=== PATIENT | male | born 1995 | race Caucasian/White ===

== ENCOUNTER 2022-03-19 10:52 | Emergency (ER) | payer OTHER, SELFPAY ==
--- OUTSIDE RECORDS SUMMARY | 2022-03-19 10:54 | XMS REPORT | Continuity of Care Document ---
:1995 Author Organization [facility] t Address [address] [place] [address] Care Team Providers Name Role Phone merary Attending Clinician Unavailable DR ARLET MILES Attending Clinician Unavailable merary Admitting Clinician Unavailable DR ARLET MILES Admitting Clinician Unavailable Payers Payer Name Policy Type Policy Number Effective Date Expiration Date S ource [place] [id number] 2013 00:00:00 [place] ([place] Problems This patient has no known problems. Allergies, Adverse Reactions, Alerts This patient has no known allergies or adverse reactions. Medications This patient has no known medications. Procedures This patient has no known procedures. Encounters Start End Encounter Admission Attending Care Care Encounter Source Date/Time Date/Time Type Type Clinicians Facility Department ID 2020-03-27 2020-03-27 Outpatient merary [facility] [id number] [place] 02:39:00 02:39:00 [facility] 2017-02-09 2017-02-09 Emergency E ARLET MILES [facility] [id number] 06:40:00 08:33:00 [facility] Results Test Description Test Time Test Comments Results Result [facility] e Comments CT ABDOMEN AND 2017-02-09 CT abdomen and pelvis PELVIS WITH 08:13:53 with contrastLocation CONTRAST*WW* Code: [id number] HISTORY: right abdominal painCOMPARISON: 06/26/15Technique: Helical CT of the abdomen and pelvis was performed followingintravenous contrast. Thin section axial, sagittal and coronal images wereobtained. One or more of the following dose reduction techniques were used:Automated exposure control, adjustment of the mA and or KV according to patientsize, and/or utilization of iterative reconstruction technique. DLP: 2203.39mGy-cm.FINDINGS:Th e lung bases are clear. The liver, gallbladder, adrenal glands, kidneys, pancreas, and spleen areunremarkable.The unopacified loops of bowel demonstrate no focal thickening or dilatation.The appendix is visualized and is normal. There is no free peritoneal air orfluid. The abdominal aorta is normal in caliber and contour. There is noretroperitoneal mass or fluid collection. The urinary bladder is unremarkable.There is no pelvic mass or fluid collection. No evidence of diverticulitis.The bones, skin, and surrounding soft tissues are unremarkable.IMPRESSION: No acute abnormality or interval change. AMYLASE AND LIPASE *WW* 2017-02-09 07:39:00 Test Item Value Reference Range Interpretation Comme nts AMYLASE (test code = 10A) 57 U/L 28-100 LIPASE (test code = 60A) 196 IU/L 73-393 COMPREHENSIVE METABOLIC LLAMAS *WW*2017-02-09 07:39:00 Test Item Value Reference Range Interpretation Comments GLUCOSE (test code = 06D) 89 mg/dL 75-100 SODIUM (test code = 01A) 139 mmol/L 136-145 POTASSIUM (test code = 01B) 4.2 mmol/L 3.6-5.1 CHLORIDE (test code = 04A) 105 mmol/L 98-107 CO2 (test code = 02A) 28 mmol/L 22-32 ANION GAP (test code = ANG) 10.2 mmol/L BUN (test code = 05D) 10 mg/dL 7-18 CREATININE (test code = 03E) 1.1 mg/dL 0.7-1.3 BUN/CREA (test code = BCR) 9 12-20 L CALCIUM (test code = 09D) 9.0 mg/dL 8.3-9.5 BILI TOTAL (test code = 11A) 1.0 mg/dL 0.2-1.0 PROTEIN (test code = 07D) 7.0 g/dL 6.4-8.2 ALBUMIN (test code = 08D) 4.4 g/dL 3.5-4.8 GLOBULIN (test code = GLB) 2.6 g/dL 1.5-3.8 ALB/GLOB (test code = AGRR) 1.7 1.0-2.6 ALK PHOS (test code = 35A) 72 IU/L 42-121 AST (test code = 30A) 18 IU/L <=42 ALT (test code = 31A) 36 IU/L <=78 PRO TIME AND PTT 2017-02-09 07:32:00 Test Item Value Reference Range Interpretation Comments PT (test code = 13.4 s 9.8-13.6 TT) INR (test code = 1.2 INR) INRH (test code = SUGGESTED THERAPEUTIC INRH) RANGE FOR INR: 2.5 - 3.5 For Patients with Prosthetic Valves or Patients with recurrent Thromboembolic Events 2.0 - 3.0 For Most Other Applications PTT (test code = 30.6 s 20.2-38.0 PTT) PTTH (test code = To monitor the PTTH) effectiveness of heparin, we offer the Anti-Xa (Heparin Assay). It can be used for either unfractionated or LMW Heparin. Order Code is ANTI-XA URINALYSIS 2017-02-09 07:19:00 Test Item Value Reference Range Interpretation Comments COLOR (test code = COLU) YELLOW YELLOW CLARITY (test code = CLA) CLEAR CLEAR GLUCOSE UR (test code = UA GLUCOSE) NEGATIVE NEGATIVE BILI UR (test code = BILE) NEGATIVE NEGATIVE KETONES UR (test code = ESTEFANIA) NEGATIVE NEGATIVE SP GRAVITY (test code = SPGR) 1.020 1.005-1.030 PH UR (test code = PH) 7.0 4.5-8.0 PROTEIN UR (test code = PU) NEGATIVE NEGATIVE UROBIL UR (test code = UROQ) 1.0 EU/dL 0.2-1.0 NITRITE UR (test code = NITRITE) NEGATIVE NEGATIVE BLOOD UR (test code = UA BLOOD) NEGATIVE NEGATIVE LEUK ES UR (test code = LEUK) NEGATIVE NEGATIVE AUAM (test code = WAUAM) NO NO CBC (INCLUDES AUTOMATED DIFFERENTIAL)*[id number] 07:15:00 Test Item Value Reference Range Interpretation Comments WBC (test code = WBC) 6.3 10\S\3/uL 4.5-11.0 RBC (test code = RBC) 5.55 10\S\6/uL 4.30-5.70 HGB (test code = HBG) 15.6 g/dL 14.0-18.0 HCT (test code = HCT) 45.3 % 35.0-46.0 MCV (test code = MCV) 81.6 fL 80.0-94.0 MCH (test code = MCH) 28.1 pg 27.0-31.0 MCHC (test code = MCHC) 34.4 g/dL 32.0-36.0 RDW (test code = RDW) 12.1 % 11.5-14.5 PLT (test code = PLT) 236 10\S\3/uL 130-400 MPV (test code = MPV) 9.1 fL 9.4-12.4 L NEUTROP # (test code = NE#) 2.9 10\S\3/uL 2.0-8.0 LYMPH # (test code = LY#) 2.9 10\S\3/uL 1.2-4.0 MONOCYTE # (test code = MO#) 0.4 10\S\3/uL 0.0-1.1 EOSINOPH # (test code = EO#) 0.1 10\S\3/uL 0.0-0.7 BASOPHIL # (test code = BA#) 0.0 10\S\3/uL 0.0-0.3 IG # (test code = IG#) 0.01 10\S\3/uL 0.00-0.06 NRBC # (test code = NRBC#) 0.00 10\S\3/uL 0.00-0.01 NEUTROPH % (test code = NE%) 46.1 % 35.0-73.0 LYMPH % (test code = LY%) 45.8 % 20.0-55.0 MONO % (test code = MO%) 6.0 % 2.5-10.0 EOSINOPH % (test code = EO%) 1.3 % 0.0-5.0 BASOPHIL % (test code = BA%) 0.6 % 0.0-2.0 IG % (test code = IG%) 0.2 % 0.0-0.8 NRBC% (test code = NRBC%) 0.0 % 0.0-0.2 MANDIFF (test code = WMDIFF) NO NO RBC MORPH (test code = NORMAL WRBCMOR)
--- NOTE | 2022-03-19 11:44 | RAD REPORT ---
EXAM DESCRIPTION: CT - Head C Spine Mpr Wo Con - 03/19/2022 11:24 am CLINICAL HISTORY: Head and neck injury status post injury. Head and neck pain COMPARISON: None. TECHNIQUE: Computed axial tomography of the head and cervical spine was obtained. Sagittal and coronal reconstruction was performed. All CT scans are performed using dose optimization technique as appropriate and may include automated exposure control or mA/KV adjustment according to patient size. FINDINGS: Suboccipital craniotomy for Arnold-Chiari malformation. An intracranial bleed is not seen. The ventricles are normal in caliber. An extra-axial fluid collect ion is not noted.Fluid within the visualized sinuses and mastoids is not seen A cervical fracture is not visualized. No dislocation is noted. IMPRESSION: No acute intracranial abnormality is seen. A cervical fracture is not visualized. If the patient continues to have symptoms to suggest intracra nial /spinal cord pathology then MRI would be recommended
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
[2022-03-19 12:52] VITALS: TEMP 98.4
[2022-03-19 12:54] VITALS: BP 125/87; O2SAT 98
== END 2022-03-19 12:43 | disposition home or self-care (01) ==
LOC: ER 10:52
DX: S10.93XA Contusion of unspecified part of neck, initial encounter (principal); W20.8XXA Other cause of strike by thrown, projected or falling object, initial encounter; Y93.89 Activity, other specified; Y92.9 Unspecified place or not applicable; Z88.6 Allergy status to analgesic agent
CPT/HCPCS: 70450; 72125; 99284